=== PATIENT | male | born 1950 | race Native Hawaiian/Other Pacific Islander ===

== ENCOUNTER 2022-01-25 22:50 | Emergency (ER) | payer OTHER ==
[~2022-01-25] VITALS: Ht 175.3 cm; Wt 93.0 kg
[2022-01-25 23:26] LABS: PLATELET COUNT 99 K/uL (142-355)
[2022-01-26 01:30] VITALS: BP 131/81; TEMP 97.8
[2022-01-26] MEDS ORDERED: HYDR25SU3 RE (06:34)
[2022-01-26] MEDS ORDERED: ASPIR-LOW81 MG PO (06:35)
[2022-01-26] MEDS ORDERED: LIPITOR40 MG PO (06:37)
[2022-01-26] MEDS ORDERED: BUSPIRONE15 MG PO (06:38)
[2022-01-26] MEDS ORDERED: CITALOPRAM HYDR10 MG PO (06:38)
[2022-01-26] MEDS ORDERED: DIVA250T PO (06:41)
[2022-01-26] MEDS ORDERED: ELIQUIS5 MG PO (06:42)
[2022-01-26] MEDS ORDERED: [UNRECOGNIZED DRUG - OTHER] RE (06:44)
[2022-01-26] MEDS ORDERED: ALBUSOL INH (06:45)
[2022-01-26] MEDS ORDERED: KEPPRA750 MG PO (06:46)
[2022-01-26] MEDS ORDERED: EUTHYROX100 MCG PO (06:47)
[2022-01-26] MEDS ORDERED: MIDODRINE10 MG PO (06:49)
[2022-01-26] MEDS ORDERED: MIRTAZAPINE7.5 MG PO ×2 (06:50→11:09)
[2022-01-26] MEDS ORDERED: MUPI2OIN2 TOP (06:52)
[2022-01-26] MEDS ORDERED: NITR0.4S2 SL (06:53)
[2022-01-26] MEDS ORDERED: PRIMIDONE50 M1 PO (06:54)
[2022-01-26] MEDS ORDERED: PROPRANOLOL HCL40 MG PO (06:55)
[2022-01-26] MEDS ORDERED: PANTOPRAZOLE SO40 M1 PO (06:56)
[2022-01-26] MEDS ORDERED: PYRIDOSTIGM60 MG (06:57)
[2022-01-26] MEDS ORDERED: DICL1GEL2 TOP (06:58)
[2022-01-26] MEDS ORDERED: ONDANSETRON HYDR4 MG PO (06:59)
[2022-01-26] MEDS ORDERED: VITAMIN D50000 UNIT PO (10:21)
== END 2022-01-26 01:30 | disposition still patient (30) ==
LOC: ED 22:56
PROVIDERS: Emergency Medicine
DX: R46.89 Other symptoms and signs involving appearance and behavior (principal); R56.9 Unspecified convulsions; Z11.52 Encounter for screening for COVID-19; Z04.6 Encounter for general psychiatric examination, requested by authority
CPT/HCPCS: 80053; 81000; 85027; 87086; 87088; 87635; 93005; 99283; U0003